=== PATIENT | female | born 1990 | race Caucasian/White ===

== ENCOUNTER 2017-02-19 02:10 | Emergency (ER) | payer BC ==
[~2017-02-19] VITALS: Ht 170.2 cm; Wt 79.6 kg
[~2017-02-19 02:10] MED LIST: MELA3TAB30 PO
--- OUTSIDE RECORDS SUMMARY | 2017-02-19 02:13 | XMS REPORT | Continuity of Care Document ---
Author Author [facility] Organization [facility] Address Unknown Phone Unavailable Support Name Relationship Address Phone ANDREA OROZCO MD Caregiver [address] [place] [address] Unavailable MARCHMODESTA DO Caregiver [address] [place] [address] Unavailable FÁTIMA CUEVAS Next Of Kin [address] [place] [address] [address]ASSANDR[address] [place] [address] Insurance Providers Guarantor Bianca Alves Address [address] [phone] Email [email or web address] Payer Self Pay Subscriber's Name Bianca Alves Relationship 18 Self Chief Complaint and Reason for Visit Chief Complaint Syncope Reason for Visit Syncope Dehydration Problems Active Problems Medical Problem Onset Date Status Hypoglycemia Unknown Past Problems Medical Problem Onset Date Dehydration Unknown Syncope Unknown Medications Current Home Medications Medication Dose Units Route Directions Days Qty Instructions Start Date Melatonin 3 Mg Tablet 6 Mg Oral Bedtime 08/07/16 Social History Social History Problem Response Recorded Date/Time Onset Date Status Hx Alcohol Use No 08/07/2016 12:26pm Not Applicable Not Applicable Query Response Start Date Stop Date Smoking Status Never smoker Hospital Discharge Instructions No hospital discharge instructions. Plan of Care Discharge Date 08/07/16 2:39pm Disposition 01 DISCHARGED HOME, SELF-CARE Condition at Discharge Improved Instructions/Education Provided Fainting Dehydration Prescriptions See Medication Section Referrals ANDREA OROZCO MD Address: [address], [place] [address] Your doctor Order Date: 3 Days Note: Additional Instructions/Education Drink plenty of fluids (other than coffee or soda). Eat a healthy breakfast. Follow up with your doctor. Care Plan and Goals Physician Care Plan Problem: Syncope Goal: Follow up with primary care provider Instructions: Take medications and follow care plan as discussed/written Functional Status No functional status results. Allergies, Adverse Reactions, Alerts No known allergies. Immunizations No immunization records. Vital Signs Acute Vital Signs Vital Response Date/Time Temperature (Fahrenheit) 98.7 deg F (96.8 - 99.1) 08/07/2016 2:39pm Temperature (Calculated Celsius) 37.97805 degrees C (36.0 - 37.3) 08/07/2016 2:39pm Pulse Rate (adult) 83 bpm (60 - 100) 08/07/2016 2:39pm Respiratory Rate 21 breaths/min (10 - 20) 08/07/2016 2:39pm O2 Sat by Pulse Oximetry 100 % (90 - 100) 08/07/2016 2:39pm Blood Pressure 118/79 mm Hg 08/07/2016 2:39pm Height (Feet) 5 feet 08/07/2016 12:26pm Height (Inches) 6.00 inches 08/07/2016 12:26pm Weight (Kilograms) 77.700 kg 08/07/2016 12:26pm Body Mass Index (BMI) 27.0 08/07/2016 12:26pm Results Laboratory Results Test Name Result Units Flags Reference Collection Date/Time Result Date/ Time Comments White Blood Count 7.2 T/MM3 4.5-11.0 08/07/2016 1:pm 08/07/2016 1: 15pm Red Blood Count 4.90 M/MM3 4.00-5.20 08/07/2016 1:pm 08/07/2016 1: 15pm Hemoglobin 14.5 GM/DL 12-16 08/07/2016 1:pm 08/07/2016 1:15pm Hematocrit 42.7 % 36-46 08/07/2016 1:pm 08/07/2016 1:15pm Mean Corpuscular Volume 87.1 UM3 80-100 08/07/2016 1:pm 08/07/2016 1: 15pm Mean Corpuscular Hemoglobin 29.6 UUG 26-34 08/07/2016 1:pm 2015 1:15pm Mean Corpuscular Hemoglobin Concent 34.0 GM/DL 31-37 08/07/2016 1:pm 08/07/2016 1:15pm RDW Standard Deviation 37.4 FL 36.9-50.2 08/07/2016 1:pm 08/07/2016 1 :15pm Platelet Count 289 T/MM3 130-400 08/07/2016 1:pm 08/07/2016 1:15pm Mean Platelet Volume 10.9 UM3 9.4-12.4 08/07/2016 1:0908/07/2016 1: 15pm Neutrophils (%) (Auto) 53.9 % 33-66 08/07/2016 1:08/07/2016 1: 15pm Lymphocytes (%) (Auto) 38.3 % 23-45 08/07/2016 1:08/07/2016 1: 15pm Monocytes (%) (Auto) 5.6 % 0-9.0 08/07/2016 1:08/07/2016 1:15pm Eosinophils (%) (Auto) 1.5 % 0-4 08/07/2016 1:08/07/2016 1:15pm Basophils (%) (Auto) 0.6 % 0-2 08/07/2016 1:08/07/2016 1:15pm Immature Granulocyte % (Auto) 0.1 % 0.0-0.5 08/07/2016 1:2015 1:15pm Absolute Neutrophils (auto) 3.9 T/MM3 1.8-7.7 08/07/2016 1:2015 1:15pm Absolute Lymphocytes (auto) 2.8 T/MM3 1-4.8 08/07/2016 1:2015 1:15pm Absolute Monocytes (auto) 0.4 T/MM3 0-0.8 08/07/2016 1:08/07/2016 1:15pm Absolute Eosinophils (auto) 0.1 T/MM3 0-0.5 08/07/2016 1:2015 1:15pm Absolute Basophils (auto) 0.0 T/MM3 0-0.2 08/07/2016 1:08/07/2016 1:15pm Absolute Immature Granulocyte (auto 0.01 T/MM3 0.00-0.03 08/07/2016 1: 08/07/2016 1:15pm Icterus Index < 2 0-7 08/07/2016 1:08/07/2016 1:22pm Chemistry Specimen Hemolysis 20 0-25 08/07/2016 1:08/07/2016 1: 22pm 0-25: Specimen Exhibited No Hemolysis. Turbidity < 20 0-20 08/07/2016 1:pm 08/07/2016 1:22pm Sodium Level 142 MEQ/L 134-144 08/07/2016 1:08/07/2016 1:27pm Potassium Level 3.4 MEQ/L L 3.6-5 08/07/2016 1:08/07/2016 1:27pm Chloride Level 101 MEQ/L 98-107 08/07/2016 1:08/07/2016 1:27pm Carbon Dioxide Level 25 MEQ/L 22-30 08/07/2016 1:08/07/2016 1: 27pm Anion Gap 16 MEQ/L H 5-15 08/07/2016 1:pm 08/07/2016 1:27pm Blood Urea Nitrogen 15.0 MG/DL 7-17 08/07/2016 1:08/07/2016 1: 27pm Creatinine 0.7 MG/DL 0.7-1.2 08/07/2016 1:08/07/2016 1:27pm BUN/Creatinine Ratio 21 RATIO 6-26 08/07/2016 1:08/07/2016 1:27pm Glomerular Filtration Rate Calc 101 08/07/2016 1:08/07/2016 1: 27pm Glucose Level 119 MG/DL H 65-110 08/07/2016 1:08/07/2016 1:27pm Calculated Osmolality 275 MOSM/KG 261-280 08/07/2016 1:08/07/2016 1:27pm Calcium Level 10.2 MG/DL 8.4-10.2 08/07/2016 1:08/07/2016 1:27pm Troponin I < 0.012 ng/ml 0-0.12 08/07/2016 1:08/07/2016 1:39pm Troponin values with a difference of 55% increase from orginal troponin value represent a true biological DELTA value. (%increase Calc=Orginal Troponin value, divided by subsequent Troponin value, multiplied by 100) Urine Collection Type VOIDED-NOT CC-MIDSTR 08/07/2016 1:34pm 2015 1:44pm Urine Color YELLOW YELLOW 08/07/2016 1:34pm 08/07/2016 1:44pm Urine Turbidity CLEAR CLEAR 08/07/2016 1:34pm 08/07/2016 1:44pm Urine Specific [place] 1.010 L 1.015-1.025 08/07/2016 1:34pm 2015 1:44pm Urine pH 6.0 5.0-8.0 08/07/2016 1:34pm 08/07/2016 1:44pm Urine Leukocyte Esterase 1+ A NEGATIVE 08/07/2016 1:34pm 08/07/2016 1: 44pm Urine Nitrite NEGATIVE NEGATIVE 08/07/2016 1:34pm 08/07/2016 1:44pm Urine Protein NEGATIVE NEGATIVE 08/07/2016 1:34pm 08/07/2016 1:44pm Urine Glucose (UA) NEGATIVE NEGATIVE 08/07/2016 1:34pm 08/07/2016 1: 44pm Urine Ketones NEGATIVE NEGATIVE 08/07/2016 1:34pm 08/07/2016 1:44pm Urine Urobilinogen 0.2 EU/DL NORMAL 08/07/2016 1:34pm 08/07/2016 1: 44pm Urine Bilirubin NEGATIVE NEGATIVE 08/07/2016 1:34pm 08/07/2016 1: 44pm Urine Blood 1+ A NEGATIVE 08/07/2016 1:34pm 08/07/2016 1:44pm Urine WBC 1-3 /HPF 0-5 08/07/2016 1:34pm 08/07/2016 1:55pm Urine RBC NONE SEEN /HPF 0-3 08/07/2016 1:34pm 08/07/2016 1:55pm Urine Squamous Epithelial Cells 0-5 08/07/2016 1:34pm 08/07/2016 1: 55pm Urine Bacteria 1+ H NEGATIVE 08/07/2016 1:34pm 08/07/2016 1:55pm Urine Culture Indicated CULT NOT INDICATED 08/07/2016 1:34pm 2015 1:55pm Glucometer 99 mg/dL 65-110 08/07/2016 12:51pm 08/07/2016 12:55pm Name: BIANCA ALVES Unit #: [id number] : 1990 Sex: F Admit Date: Loc / Svc: ED Discharge Date: DIAGNOSTIC IMAGING REPORT Report #: [id number] [facility] ESTHER Levi EXAM: CHEST 1 VIEW LOCATION OF DICTATION: [place] HISTORY: ITS.REASON: Syncope COMPARISON: No prior studies available for comparison. FINDINGS: The heart size is normal. The mediastinal configuration is within normal limits. There are no consolidating opacities or pleural effusions. There is no pneumothorax. The osseous structures are within normal limits for the patient's age. IMPRESSION: No acute cardiopulmonary abnormalities demonstrated. . Procedures No known history of procedures. Encounters Encounter Location Arrival/Admit Date Discharge/Depart Date Attending Provider Departed Emergency Room [facility] 08/07/16 12:26pm 08/07/16 2: 39pm MODESTA ODEN DO Recent Diagnosis
[2017-02-19 02:22] VITALS: Ht 170.2 cm; Wt 79.6 kg
[2017-02-19] MEDS ORDERED: HYDROMORPHONE 2mg/ml INJECTION IV ONE (02:30)
[2017-02-19] MEDS ORDERED: KETOROLAC 30mg/ml INJECTION IV ONE (02:30)
[2017-02-19] MEDS ORDERED: NORMAL SALINE 1,000 ML IV ONE (02:30)
[2017-02-19] MEDS ORDERED: ONDANSETRON 4mg/2ml INJECTION IV ONE (02:30)
--- NOTE | 2017-02-19 02:35 | ERPDOC ---
Departure Disposition Decision Date: Feb 19, 2017 Disposition Decision Time: 05:09 Disposition: 01 DISCHARGED HOME, SELF-CARE Impression Impression Impression: Primary Impression: Viral gastroenteritis Additional Impression: Spastic intestine Severity: Severe Condition: Improved Seen By: Physician only Referrals: ANDREA OROZCO MD (Family) Patient Instructions: Gastroenteritis (ED) Problems/Meds/Labs Reviewed?: Yes Medications reviewed and manag: Yes Follow up care ordered?: Yes Mental Status: Alert Scripts Prochlorperazine Maleate (Compazine) 10 Mg Tablet 10 MG PO QID, #30 TAB 0 Refills Prov: NIYA VILLAREAL MD 02/19/17 HPI - Abdominal Pain General Chief Complaint: Abdominal Pain Stated Complaint: R SIDE PAIN Time Seen by Provider: 02:14 Source: patient History/Exam Limitations: no limitations HPI - Abdominal Pain Initial Comments Sudden onset severe right lower quadrant pain one hour ago while sleeping. Patient has slight nausea with it, nose chills, no fever, no diarrhea. Patient has had her appendix out, is not sexually active, and she is currently on her period. Occurred At: home Onset: Rapid Duration: 1 hr Location: RLQ, periumbilical Associated Symptoms: nausea/vomiting, DENIES: back pain, chest pain, diaphoresis, fatigue, fever/chills, headache, heartburn, rash, shortness of breath, swelling/mass in abdomen, syncope, weakness Hx of Similar Symptoms: No Allergies: Coded Allergies: No Known Allergies (Unverified , 02/19/17) Past History Surgical History General: appendix Social History Smoking Status: Never smoker Does patient use chewing tobac: No Second Hand Exposure: No Substance Use Type: does not use Alcohol Intake: none Record Review Pertinent history updated: Yes Review of Systems Constitutional Constitutional: DENIES: appetite decrease, appetite increase, chills, dizziness , fever, weakness ENMT Ears: DENIES: pain Hearing: DENIES: hearing loss, tinnitus Balance: DENIES: vertigo Mouth/Throat: DENIES: change in swallowing, change in voice, hoarsness, painful swallowing, sore throat Cardiovascular Cardiac: DENIES: chest pain, dyspnea on exertion Rhythm/Rate: DENIES: irregular beat, palpitations, tachycardia Vascular: DENIES: pedal edema Pulmonary Respiratory: DENIES: cough, dyspnea, pleuritic chest pain GI Upper Abdomen: nausea, DENIES: dysphagia, food intolerances, heartburn/ indigestion, hematemesis, pain, see HPI, vomiting Lower Abdomen: pain, DENIES: blood in stool, sarah-colored stools, constipation , diarrhea, melena, painful BM General: DENIES: burning, dysuria, frequency, pain, urgency Musculoskeletal General: DENIES: cramps, joint pain, joint swelling, pain, weakness Integumentary Skin: DENIES: rash, sores Neurological General: DENIES: headache, numbness, tingling, vertigo, weakness Psychiatric Psychiatric: DENIES: anxiety, depression, nervousness Physical Exam General General Nourishment: well nourished, well developed, appears stated age General Body Habitus: well groomed Vitals and Pain First Documented Vital Signs Date Time Temp Pulse Resp B/P Pulse Ox O2 Delivery O2 Flow Rate FiO2 02/19/17 02:22 98.5 80 16 124/76 100 Room Air Weight: Kilograms: Height (feet): 5 Height (inches): 6.00 Triage Pain Scale: RN VS reviewed by Provider: Yes Normal Exams: Head: Normocephalic w/o trauma Eyes: Pupils are PERRLA w/ EOMI, No scleral icterus, irritation, or foreign bodies noted ENMT: No facial trauma, nasal exudates, pharyngeal erythema, or exudates are noted Chest/Resp: Clear all contreras, with good airflow, and symmetry bilaterally CV: Regular rate and rhythm, without murmur or gallop, Pulses 2+ all extremities, capillary refill, <2 seconds all ext., no pedal edema noted Lymphatic: No lymphadenopathy, or lymphedema noted Musculoskeletal: No tenderness, or deformity noted, good range of motion, all extremities Integumentary: No rashes, hives, or bruising noted, hair and nails, without abnormality Neurologic: Patient is alert, and oriented, cranial nerves, motor/sensory/ cerebellar, exams w/o gross deficits, to observation Psychiatric: Patient exhibits, appropriate attention, emotion and affect Abdomen (brief) Abdominal Brief: FOUND: bowel normo active x4, soft, tender (significant periumbilical and right lower quadrant tenderness with significant guarding, rebounding), NOT FOUND: distended, hepatosplenomegaly, pulsatile mass Progress Results/Orders Orders Procedure Category Date Status Time Iv Lock (Ed Only) EDM 3/29/17 Transmitted 02:29 Cbc W/Auto LAB 02/19/17 Complete Diff-Reflex Manual Cmp - Comprehensive LAB 02/19/17 Complete Metabolic Lipase LAB 02/19/[address] Abd/Pelvis CT 02/19/17 Resulted W/Contrast Only LAB 02/19/17 Complete Qualitative, Urine 02:29 Ketorolac (Toradol) PHA 02/19/17 Complete 02:30 Ondansetron Inj PHA 02/19/17 Complete (Zofran) 02:30 Hydromorphone PHA 02/19/17 Complete (Dilaudid) 02:30 Normal Saline (Normal PHA 02/19/17 Complete Saline Iv) 02:30 UA, LAB 02/19/17 Complete Dip&Micro(Complete) & 03:00 Iohexol (Omnipaque) PHA 02/19/17 Complete 03:40 Normal Saline (Ns) PHA 02/19/17 Complete 03:40 Saline Flush (Iv PHA 02/19/17 Complete Flush) 03:40 Lab Results Laboratory Tests Test 02/19/17 03:00 White Blood Count 9.7T/MM3 Red Blood Count 4.21M/MM3 Hemoglobin 12.6GM/DL Hematocrit 37.4% Mean Corpuscular Volume 88.8UM3 Mean Corpuscular Hemoglobin 29.9UUG Mean Corpuscular Hemoglobin Concent 33.7GM/DL RDW Standard Deviation 39.3FL Platelet Count 258T/MM3 Mean Platelet Volume 9.9UM3 Immature Granulocyte % (Auto) 0.1% Neutrophils (%) (Auto) 61.4% Lymphocytes (%) (Auto) 26.7% Monocytes (%) (Auto) 9.0% Eosinophils (%) (Auto) 2.1% Basophils (%) (Auto) 0.7% Absolute Immature Granulocyte (auto 0.01T/MM3 Absolute Neutrophils (auto) 6.0T/MM3 Absolute Lymphocytes (auto) 2.6T/MM3 Absolute Monocytes (auto) 0.9T/MM3 Absolute Eosinophils (auto) 0.2T/MM3 Absolute Basophils (auto) 0.1T/MM3 Urine Collection Type Cleancatch-midstream Urine Color Yellow Urine Turbidity Clear Urine pH 5.5 Urine Specific [place] >=1.030 Urine Protein Negative Urine Glucose (UA) Negative Urine Ketones Negative Urine Blood 3+ Urine Nitrite Negative Urine Bilirubin Negative Urine Urobilinogen 0.2EU/DL Urine Leukocyte Esterase Negative Urine RBC 1-3/HPF Urine WBC 1-3/HPF Urine Squamous Epithelial Cells 0-5 Urine Bacteria 1+ Urine Culture Indicated Cult not indicated Urine Test Negative Turbidity < 20 Sodium Level 140MEQ/L Potassium Level 3.5MEQ/L Chloride Level 103MEQ/L Carbon Dioxide Level 25MEQ/L Anion Gap 12MEQ/L Blood Urea Nitrogen 19.0MG/DL Creatinine 0.7MG/DL Glomerular Filtration Rate Calc 101 BUN/Creatinine Ratio 27RATIO Glucose Level 107MG/DL Calculated Osmolality 271MOSM/KG Calcium Level 9.4MG/DL Total Bilirubin 0.70MG/DL Icterus Index < 2 Aspartate Amino Transf (AST/SGOT) 23U/L Alanine Aminotransferase (ALT/SGPT) 31U/L Alkaline Phosphatase 62U/L Total Protein 7.3G/DL Albumin 4.2G/DL Globulin 3.1G/DL Albumin/Globulin Ratio 1.4RATIO Lipase 73U/L Chemistry Specimen Hemolysis < 15 Medications Current ED Medications Ketorolac Tromethamine (Toradol) 30 mg O ONCE IV Last administered on 03:12; Start 02/19/17 at 02:30; Stop 02/19/17 at 02:34; Status DC Ondansetron HCl (Zofran) 4 mg O ONCE IV Last administered on 02/19/17 03:13; Start 02/19/17 at 02:30; Stop 02/19/17 at 02:34; Status DC Hydromorphone HCl 0.5 mg 0.5 mg O ONCE IV Last administered on 02/19/17 03:12 ; Start 02/19/17 at 02:30; Stop 02/19/17 at 02:34; Status DC Sodium Chloride (Normal Saline IV) 1,000 ml @ 0 mls/hr Q0M ONCE IV Last administered on 02/19/17 03:12; Start 02/19/17 at 02:30; Stop 02/19/17 at 02:34 ; Status DC Iohexol 1 bottle 1 bottle STK-MED ONCE .ROUTE ; Start 02/19/17 at 03:40; Stop at 03:41; Status DC Sodium Chloride (NS) 100 ml @ As Directed STK-MED ONCE .ROUTE ; Start 02/19/17 at 03:40; Stop 02/19/17 at 03:41; Status DC Sodium Chloride (Iv Flush) 10 ml STK-MED ONCE .ROUTE ; Start 02/19/17 at 03:40; Stop 02/19/17 at 03:41; Status DC Progress Progress Patient given Toradol, Zofran, and 0.5 mg Dilaudid IV with 1 L normal saline bolus - to relief CBC - n CMP/L - n UA/P - n CT abdomen - n See appears to be viral gastroenteritis with intestinal spasms Patient dismissed with prescription and pack of Compazine 10 mg 4 times daily as needed and is to use Aleve 2 tablets twice daily NIYA VILLAREAL MD Feb 19, 2017 02:35
[2017-02-19 03:21] LABS: BASOPHILS # (AUTO) 0.1 T/MM3 (0-0.2); BASOPHILS % (AUTO) 0.7 % (0-2); BLOOD, URINE 3+ (NEGATIVE); COLOR,URINE YELLOW (YELLOW); EOSINOPHILS # (AUTO) 0.2 T/MM3 (0-0.5); EOSINOPHILS % (AUTO) 2.1 % (0-4); HCT - HEMATOCRIT 37.4 % (36-46); HGB - HEMOGLOBIN 12.6 GM/DL (12-16); IMMATURE GRANULOCYTE # (AUTO) 0.01 T/MM3 (0.00-0.03); IMMATURE GRANULOCYTE % (AUTO) 0.1 % (0.0-0.5); LEUKOCYTE ESTERASE ,URINE NEGATIVE (NEGATIVE); LYMPHOCYTES # (AUTO) 2.6 T/MM3 (1-4.8); LYMPHOCYTES % (AUTO) 26.7 % (23-45); MEAN CORPUSCULAR HGB 29.9 UUG (26-34); MEAN CORPUSCULAR HGB CONC(MCHC 33.7 GM/DL (31-37); MEAN CORPUSCULAR VOLUME 88.8 UM3 (80-100); MEAN PLATELET VOLUME 9.9 UM3 (9.4-12.4); MONOCYTES # (AUTO) 0.9 T/MM3 (0-0.8); NEUTROPHILS % (AUTO) 61.4 % (33-66); NITRITE,URINE NEGATIVE (NEGATIVE); RED BLOOD COUNT 4.21 M/MM3 (4.00-5.20); UROBILINOGEN,URINE 0.2 EU/DL (NORMAL); WBC - WHITE BLOOD COUNT 9.7 T/MM3 (4.5-11.0)
[2017-02-19] MEDS ORDERED: NO CURRENT HOME MEDS (03:22)
[2017-02-19 03:28] LABS: BACTERIA,URINE 1+ (NEGATIVE); SQUAMOUS EPITHELIAL CELL,UR 0-5
[2017-02-19 03:29] LABS: ALBUMIN 4.2 G/DL (3.5-5.0); ALBUMIN/GLOBULIN RATIO 1.4 RATIO (1.1-2.2); ALKALINE PHOSPHATASE 62 U/L (38-126); ALT (SGPT) 31 U/L (9-52); ANION GAP 12 MEQ/L (5-15); AST (SGOT) 23 U/L (14-36); BUN/CREATININE RATIO 27 RATIO (6-26); CALCIUM 9.4 MG/DL (8.4-10.2); CHLORIDE 103 MEQ/L (98-107); CO2 - CARBON DIOXIDE 25 MEQ/L (22-30); CREATININE 0.7 MG/DL (0.7-1.2); GLOMERULAR FILTRATION RATE 101; GLUCOSE 107 MG/DL (65-110); LIPASE 73 U/L (23-300); POTASSIUM 3.5 MEQ/L (3.6-5); SODIUM 140 MEQ/L (134-144); TOTAL PROTEIN 7.3 G/DL (6.3-8.2)
[2017-02-19] MEDS ORDERED: NORMAL SALINE 100 ML ONE (03:40)
[2017-02-19] MEDS ORDERED: IOHEXOL 300 MG/ML 100ml INJECTION ONE (03:40)
[2017-02-19] MEDS ORDERED: SALINE FLUSH 10ml SYRINGE ONE (03:40)
--- NOTE | 2017-02-19 03:42 | NUR ---
STATUS PT REPORTS PAIN IS IMPROVED AND NOW RATES PAIN 3/10, ON ARRIVAL RATED 8/10. PT DENIES ANY NAUSEA AT THIS TIME.
--- NOTE | 2017-02-19 03:44 | NUR ---
IMAGING PT LEAVES WITH IMAGING STAFF AT THIS TIME.
--- NOTE | 2017-02-19 04:03 | NUR ---
RETURN PT RETURNS TO ROOM AT THIS TIME.
[2017-02-19] MEDS ORDERED: PROC-14 PO (05:09)
[2017-02-19 05:38] VITALS: BP 107/64; PULSE 78; RESP 12; TEMP 98.5; O2SAT 97
--- NOTE | 2017-02-19 05:38 | NUR ---
DEPART PT IS DISCHARGED AT THIS TIME, INSTRUCTIONS ARE REVIEWED AND UNDERSTANDING IS VOICED. PT LEAVES AMBULATORY WITH HER FIANCE.
--- NOTE | 2017-02-19 07:51 | DI ---
Indication: ITS.REASON: RLQ and Periumbilical pain PROCEDURE: CT ABD/PELVIS W/CONTRAST ONLY: Encounter: Initial Comparison: None Technique: Axial CT images were performed through the abdomen and pelvis after the administration of intravenous contrast. Coronal and sagittal two-dimensional reformats. Automated Exposure Control and Iterative Reconstruction dose reducing techniques were utilized. Contrast: Omnipaque 300 100 mL Findings: The lung bases are clear. The liver, spleen, pancreas, adrenal glands and kidneys are normal. No abdominal or pelvic lymphadenopathy. Bladder is normal. Uterus is within normal limits. Bilateral ovarian cysts. Small amount of free pelvic fluid, probably physiologic. No evidence of a bowel obstruction. Moderate stool throughout the colon. The appendix is not visualized and reportedly surgically absent. Bone windows are within normal limits. Impression: No acute disease process seen. There is a preliminary report by [facility]. .
== END 2017-02-19 05:38 | disposition home or self-care (01) ==
LOC: ED 02:10
DX: A08.4 Viral intestinal infection, unspecified (principal); K58.9 Irritable bowel syndrome, unspecified
CPT/HCPCS: 74177; 80053; 81001; 81025; 83690; 85025; 96374; 96375; 99284; J1170; J1885; J2405; J7030; J7050; Q9967